=== PATIENT | female | born 1990 | race Hispanic/Latino ===

== ENCOUNTER 2021-05-04 11:27 | Emergency (ER) | payer BC ==
[~2021-05-04] VITALS: Ht 160 cm; Wt 72.6 kg
[2021-05-04 12:20] LABS: BASOPHILS % (AUTO) 1.8 % (0.0-5.0); EOSINOPHILS % (AUTO) 1.2 % (0.0-8.0); HEMATOCRIT 40.3 % (36-48); LYMPHOCYTES % (AUTO) 30.7 % (21.0-51.0); MEAN CORPUSCULAR HEMOGLOBIN 30.1 pg (27.0-33.0); MEAN CORPUSCULAR HGB CONC 32.5 g/dL (32.0-36.0); MEAN CORPUSCULAR VOLUME 92.6 fL (79-99); MONOCYTES % (AUTO) 5.9 % (3.0-13.0); PLATELET COUNT (AUTO) 388 K/uL (130-400); RED BLOOD CELL COUNT(AUTO) 4.35 MIL/uL (4.00-5.50); RED CELL DISTRIBUTION WIDTH 13.2 % (11.0-15.5); WHITE BLOOD COUNT (AUTO) 6.8 K/uL (4.8-10.8)
[2021-05-04 12:23] LABS: APPEARANCE,URINE SL CLOUDY (CLEAR); BILIRUBIN,URINE NEGATIVE (NEGATIVE); COLOR,URINE YELLOW (YELLOW); GLUCOSE, URINE (UA) NEGATIVE (NEGATIVE); KETONES,URINE NEGATIVE (NEGATIVE); LEUKOCYTE ESTERASE ,URINE NEGATIVE (NEGATIVE); NITRATE,URINE NEGATIVE (NEGATIVE); OCCULT BLOOD,URINE LARGE (NEGATIVE); PH,URINE 5.5 (5.0-8.0); PROTEIN,URINE NEGATIVE (NEGATIVE); UROBILINOGEN,URINE 0.2 mg/dL (0.2-1.0)
[2021-05-04 12:27] LABS: CREATININE 0.7 mg/dL (0.5-1.5); POTASSIUM 4.7 mmol/L (3.5-5.1)
[2021-05-04 12:31] LABS: BILIRUBIN,TOTAL 0.3 mg/dL (0.2-1.0); TOTAL PROTEIN, SERUM 7.7 g/dL (6.0-8.3)
[2021-05-04] MEDS ORDERED: KETOROLAC 30MG VIAL (30MG/ML) IM STA (12:52)
[2021-05-04 13:01] LABS: HCG,QUAL RESULT NEGATIVE (NEGATIVE)
[2021-05-04 13:05] LABS: BACTERIA,URINE Rare /HPF (None Seen); RBC,URINE >100 /HPF (0-1); SQUAMOUS EPITHELIAL CELL,UR Rare /HPF (0-2); WBC,URINE 0-1 /HPF (0-1)
[2021-05-04] MEDS ORDERED: IOHEXOL-350 75 ML VIAL IV ONE (14:41)
[2021-05-04] MEDS ORDERED: IBUP-2088 PO (16:51)
[2021-05-04 17:22] VITALS: BP 109/71
== END 2021-05-04 17:31 | disposition home or self-care (01) ==
LOC: EDH 11:27
DX: D35.00 Benign neoplasm of unspecified adrenal gland (principal); R10.9 Unspecified abdominal pain; Z88.0 Allergy status to penicillin; Z79.1 Long term (current) use of non-steroidal anti-inflammatories (NSAID)
CPT/HCPCS: 36415; 74018; 74177; 80053; 81001; 81025; 82150; 83690; 84703; 85025; 96372; 99284; J1885; Q9967

== ENCOUNTER 2023-03-11 11:38 | Emergency (ER) | payer BC ==
[~2023-03-11] VITALS: Ht 160 cm; Wt 81.6 kg
[~2023-03-11 11:38] MED LIST: IBUP-2088 PO
[2023-03-11 12:27] LABS: BASOPHILS # (AUTO) 0.06 K/uL (0.00-0.20); BASOPHILS % (AUTO) 1.2 % (0.0-5.0); EOSINOPHILS # (AUTO) 0.01 K/uL (0.00-0.70); EOSINOPHILS % (AUTO) 0.2 % (0.0-8.0); HEMATOCRIT 38.2 % (36-48); IMMATURE GRANULOCYTE ABSOLUTE 0.06 K/uL (0-1); LYMPHOCYTES # (AUTO) 0.6 K/uL (1.0-4.8); LYMPHOCYTES % (AUTO) 11.5 % (21.0-51.0); MEAN CORPUSCULAR HEMOGLOBIN 29.3 pg (27.0-33.0); MEAN CORPUSCULAR HGB CONC 32.7 g/dL (32.0-36.0); MEAN CORPUSCULAR VOLUME 89.7 fL (79-99); MONOCYTES # (AUTO) 0.8 K/uL (0.1-1.0); MONOCYTES % (AUTO) 15.4 % (3.0-13.0); NEUTROPHILS # (AUTO) 3.6 K/uL (1.8-7.7); NEUTROPHILS % (AUTO) 70.5 % (40.0-77.0); PLATELET COUNT (AUTO) 309 K/uL (130-400); RED BLOOD CELL COUNT(AUTO) 4.26 MIL/uL (4.00-5.50); RED CELL DISTRIBUTION WIDTH 13.9 % (11.0-15.5); WHITE BLOOD COUNT (AUTO) 5.1 K/uL (4.8-10.8)
[2023-03-11 12:36] LABS: APPEARANCE,URINE CLEAR (CLEAR); BILIRUBIN,URINE NEGATIVE (NEGATIVE); COLOR,URINE YELLOW (YELLOW); GLUCOSE, URINE (UA) NEGATIVE (NEGATIVE); KETONES,URINE >=80 mg/dL (NEGATIVE); LEUKOCYTE ESTERASE ,URINE 25 Leu/uL (NEGATIVE); NITRATE,URINE NEGATIVE (NEGATIVE); OCCULT BLOOD,URINE NEGATIVE (NEGATIVE); PROTEIN,URINE 20 mg/dL (NEGATIVE); UROBILINOGEN,URINE 3 mg/dL (0.2-1.0)
[2023-03-11 12:40] LABS: ADD UA MICROSCOPIC YES
[2023-03-11 12:41] LABS: BACTERIA,URINE RARE /HPF (None Seen); MUCUS,URINE RARE LPF (None Seen); SQUAMOUS EPITHELIAL CELL,UR FEW /HPF (0-2)
[2023-03-11 12:48] LABS: HCG,QUALITATIVE URINE NEGATIVE (NEGATIVE)
[2023-03-11 12:54] LABS: CREATININE 0.8 mg/dL (0.5-1.5); POTASSIUM 3.8 mmol/L (3.5-5.1)
[2023-03-11 12:58] LABS: ALBUMIN 3.5 g/dL (3.5-5.0); BILIRUBIN,TOTAL 0.4 mg/dL (0.2-1.0); TOTAL PROTEIN, SERUM 7.1 g/dL (6.0-8.3)
[2023-03-11] MEDS ORDERED: MACR100 PO (15:44)
[2023-03-11] MEDS ORDERED: MORPHINE 4 MG SYG IM ONE (16:00)
[2023-03-11] MEDS ORDERED: ONDANSETRON 4MG INJ IVP ONE (16:00)
[2023-03-11 16:45] VITALS: BP 121/75; PULSE 89; RESP 18; O2SAT 98
== END 2023-03-11 16:48 | disposition home or self-care (01) ==
LOC: EDH 11:38
DX: N39.0 Urinary tract infection, site not specified (principal); R10.31 Right lower quadrant pain; Z98.890 Other specified postprocedural states; Z88.0 Allergy status to penicillin
CPT/HCPCS: 99285; 74176; 96374; 76705; 80053; 85025; 81001; 81025; 36415; 96372; J2405; J2270